=== PATIENT | male | born 1990 | race African-American/Black ===

== ENCOUNTER 2023-09-19 12:18 | Emergency (ER) | payer OTHER ==
[~2023-09-19] VITALS: Ht 172.7 cm; Wt 63.5 kg
[2023-09-19 12:28] VITALS: BP 143/73; TEMP 98.3; O2SAT 100
== END 2023-09-19 13:10 | disposition home or self-care (01) ==
LOC: ER 12:18
DX: M26.31 Crowding of fully erupted teeth (principal); K06.8 Other specified disorders of gingiva and edentulous alveolar ridge; Z98.890 Other specified postprocedural states